=== PATIENT | female | born 1965 | race Caucasian/White ===

== ENCOUNTER → 2018-02-01 09:52 | Outpatient (CLI) | payer OTHER, SELFPAY ==
--- NOTE | 2018-02-01 10:05 | EKG12_ITS ---
Test Reason : PRE-OP Blood Pressure : / mmHG Vent. Rate : 082 BPM Atrial Rate : 082 BPM P-R Int : 154 ms QRS Dur : 084 ms QT Int : 376 ms P-R-T Axes : 027 -40 015 degrees QTc Int : 439 ms Normal sinus rhythm Left axis deviation Low voltage QRS Cannot rule out Anterior infarct , age undetermined Abnormal ECG Confirmed by JUDITH WALLIS, WOODY ([id number]), editor index LEDY TEJEDA ([id number]) on 02/03/2018 3:06:34 PM Referred By: Joey Roberts Confirmed By:WOODY WONG MD
[2018-02-01 11:18] LABS: Hematocrit 43.2 % (37-47); Hemoglobin 14.2 g/dl (12.0-15.0); Mean Corp Hgb Conc 32.9 g/gl (32-36); Mean Corpuscular Hgb 28.1 pg (27.0-32.0); Mean Corpuscular Volume 85.4 fL (81-99); Mean Platelet Vol. 11.6 fl (6.2-12.0); Platelet Count 172 K/mm3 (150-450); RBC Distribution Width CV 15.1 % (11.6-14.6); RBC Distribution Width SD 46.6 fl (35.1-43.9); Red Blood Count 5.06 M/mm3 (4.2-5.4)
[2018-02-01 11:19] LABS: Scan Indicated on CBC? Y/N NO
[2018-02-01 11:41] LABS: Anion Gap 8 (5-15); BUN 19 mg/dL (7-18); BUN/Creat Ratio 21.6 RATIO (10-20); Calcium,Total 9.2 mg/dL (8.5-10.1); Chloride 104 mmol/L (98-107); Creatinine, Serum 0.88 mg/dL (0.55-1.02); EST Glomerular Filtration Rate 72 mL/min (>60); Est Glom Filt Rate - Afr Amer 87 mL/min (>60); Glucose 90 mg/dL (74-106); Potassium 4.3 mmol/L (3.5-5.1); Sodium Level 140 mmol/L (136-145)
== END ==
PROVIDERS: Visit Provider Surgery
DX: Z01.810 Encounter for preprocedural cardiovascular examination (principal); I87.2 Venous insufficiency (chronic) (peripheral); I83.11 Varicose veins of right lower extremity with inflammation; M79.661 Pain in right lower leg; M79.89 Other specified soft tissue disorders; L91.8 Other hypertrophic disorders of the skin
CPT/HCPCS: 36415; 80048; 85027; 93005

== ENCOUNTER → 2018-02-12 11:08 | Outpatient (CLI) | payer OTHER, SELFPAY | PROVIDERS: Visit Provider Surgery | DX: I83.10 Varicose veins of unspecified lower extremity with inflammation (principal); I87.2 Venous insufficiency (chronic) (peripheral); M79.606 Pain in leg, unspecified | CPT/HCPCS: 93971 ==